=== PATIENT | female | born 1980 | race Caucasian/White ===

== ENCOUNTER 2017-02-20 07:13 | Emergency (ER) | payer BC, MEDICAID ==
[2017-02-20 07:32] VITALS: BP 122/79
--- NOTE | 2017-02-20 08:16 | UC ---
Skin Complaint HPI - HPI Summary HPI Summary: 36 y/o female presents to the urgent care c/o her c- section has small opening on one of the edges with some yellowish bloody discharge for the past 3 days. Pt reports she had her done on 01/18/2017 for her twin boys. Her scar was healing well, until she had been doing some heavy lifting and she noticed that one of the edges was getting infected. Pt couldn't get an appt to get and appt with her OBGYN Dr Tayo Toscano, just to make sure her is not opening. Pt denies pain, fever, abdominal pain, pelvic pain, SOB, chest pain , N/V/D. Her twin boys were premature since she developed pre-eclampsia. She is breast feeding. - History of Current Complaint Hx Obtained From: Patient Hx Last Menstrual Period: 08/16/15 ?: No Onset/Duration: Gradual Onset, Lasting Days - 3 days, Still Present Skin Exposure Onset/Duration: Days Ago Timing: Constant Onset Severity: Mild Current Severity: Mild Pain Intensity: 0 Pain Scale Used: 0-10 Numeric Location: Discrete - one of the edges of Character: Redness Aggravating Factor(s): Touch Alleviating Factor(s): Nothing Associated Signs & Symptoms: Positive: Rash. Negative: Nausea, Vomiting, Fever , Chills, Bruising, Tenderness Related History: Other: - <Marianne Pruett - Last Filed: 02/21/17 10:25> <Susan Benjamin - Last Filed: 02/23/17 20:26> - History of Current Complaint Chief Complaint: [facility] Time Seen by Provider: 02/20/17 07:22 Stated Complaint: SKIN COMPLAINT STOMACH - Allergy/Home Medications Allergies/Adverse Reactions: Allergies Allergy/AdvReac Type Severity Reaction Status Date / Time Ibuprofen Allergy Rash Verified 02/20/17 07:27 Penicillins Allergy Rash Verified 02/20/17 07:27 Home Medications: Home Medications Ascorbic Acid TAB* [Vitamin C TAB*] 500 mg PO DAILY 02/20/17 [History Confirmed 02/20/17] Vitamin TAB* 1 tab PO DAILY 02/20/17 [History Confirmed 02/20/17] Sertraline* [Zoloft*] 50 mg PO DAILY 02/20/17 [History Confirmed 02/20/17] Review of Systems Constitutional: Negative Skin: Other - with a minor infection Eyes: Negative ENT: Negative Respiratory: Negative Cardiovascular: Negative Gastrointestinal: Negative Genitourinary: Negative Motor: Negative Neurovascular: Negative Musculoskeletal: Negative Neurological: Negative Psychological: Negative Is Patient Immunocompromised?: No All Other Systems Reviewed And Are Negative: Yes <Marianne Pruett - Last Filed: 02/21/17 10:25> PMH/Surg Hx/FS Hx/Imm Hx Previously Healthy: Yes Other Cardiovascular History: Gestational HTN Psychological History: Anxiety - Surgical History Surgical History: Yes Surgery Procedure, Year, and Place: , 01/18/17, [place]; Tonsillectomy , ~1988 - Family History Family History: Hypothyrodism - Social History Occupation: Unemployed Lives: With Family Alcohol Use: None Substance Use Type: None Smoking Status (MU): Former Smoker When Did the Patient Quit Smoking/Using Tobacco: 2010 - Immunization History Most Recent Influenza Vaccination: 02/19/17 <Marianne Pruett - Last Filed: 02/21/17 10:25> Physical Exam Triage Information Reviewed: Yes Appearance: Well-Appearing, No Pain Distress, Well-Nourished Vital Signs: Initial Vital Signs Temp 99 F 02/20/17 07:25 Pulse 108 02/20/17 07:25 Resp 16 02/20/17 07:25 BP 122/79 02/20/17 07:25 Pulse Ox 99 02/20/17 07:25 Vital Signs Reviewed: Yes Eye Exam: Normal Eyes: Positive: Conjunctiva Clear - PERRLA, EOMI ENT Exam: Normal ENT: Positive: Normal ENT inspection, Hearing grossly normal, Pharynx normal, TMs normal Neck exam: Normal Neck: Positive: Supple, Nontender, No Lymphadenopathy Respiratory Exam: Normal Respiratory: Positive: Chest non-tender, Lungs clear, Normal breath sounds Cardiovascular Exam: Normal Cardiovascular: Positive: RRR, No Murmur, Pulses Normal, Brisk Capillary Refill Abdominal Exam: Normal Abdomen Description: Positive: Nontender, No Organomegaly, Soft. Negative: CVA Tenderness (R), CVA Tenderness (L) Bowel Sounds: Positive: Present Musculoskeletal Exam: Normal Musculoskeletal: Positive: Strength Intact, ROM Intact, No Edema Neurological Exam: Normal Psychological Exam: Normal Skin: Positive: Other - Suprapubic about 16cm in size healing well. The left corner with a discrete erythema and minimum yellowish discharge. non tender to palpation, no abcess or induration palpated. Yellowish discharged removed, no opening observed. <Marianne Pruett - Last Filed: 02/21/17 10:25> Vital Signs: Initial Vital Signs Temp 99 F 02/20/17 07:25 Pulse 108 02/20/17 07:25 Resp 16 02/20/17 07:25 BP 122/79 02/20/17 07:25 Pulse Ox 99 02/20/17 07:25 <Susan Benjamin - Last Filed: 02/23/17 20:26> Course/Dx - Course Course Of Treatment: 36 y/o female presents to the urgent care c/o her c- section has small opening on one of the edges with some yellowish bloody discharge for the past 3 days. Pt reports she had her done on 2016 for her twin boys. Her scar was healing well, until she had been doing some heavy lifting and she noticed that one of the edges was getting infected. Pt couldn't get an appt to get and appt with her OBGYN Dr Tayo Toscano, just to make sure her is not opening. Pt denies pain, fever, abdominal pain, pelvic pain, SOB, chest pain, N/V/D. Her twin boys were premature since she developed pre-eclampsia. She is breast feeding. Hx obtained. On Physical examination Left edge of the with discrete surgical site infection. Pt Rx Bacitracin topical and advised to keep wound clean and dry and apply topical ABX and covered with and sterile dressing.Advised heavy lifting and if fever, redness, pain and swelling develops toreturn to the urgent care or your OBGYN for further treatment. Pt understood and agreed with D/C instructions. - Differential Diagnoses - Skin Complaint Differential Diagnoses: Abscess, Allergic Reaction, Cellulitis, Contact Dermatitis, MRSA, Urticaria, Other - infected wound, - Diagnoses Provider Diagnoses: 1- scar superficial skin infection <Marianne Pruett - Last Filed: 02/21/17 10:25> Discharge <Marianne Pruett - Last Filed: 02/21/17 10:25> <Susan Benjamin - Last Filed: 02/23/17 20:26> - Discharge Plan Condition: Stable Disposition: HOME Prescriptions: Bacitracin OINTMENT* 1 applic TOPICAL TID #1 tube Patient Education Materials: Surgical Site Infections (ED) Referrals: Tayo Lopez MD [Primary Care Provider] - If Needed Additional Instructions: 1-Please apply topical antibiotic on affected area as directed. Kepp wound dry and clean 2- If fever, redness, pain and swelling develops please return to the urgent care or your OBGYN for further treatment. 3-Avoid heavy lifting Attestation Statement User Type: Provider - I was available for consult. This patient was seen by the FAVIOLA. The patient was not presented to, seen by, or examined by me. -Nelly <Susan Benjamin - Last Filed: 02/23/17 20:26>
== END 2017-02-20 08:30 | disposition home or self-care (01) ==
LOC: UCCORT 07:13
DX: O86.0 Infection of obstetric surgical wound (principal); O99.345 Other mental disorders complicating the puerperium; F41.9 Anxiety disorder, unspecified; Z88.6 Allergy status to analgesic agent; Z88.0 Allergy status to penicillin; Z87.891 Personal history of nicotine dependence
CPT/HCPCS: 99212; G0463

== ENCOUNTER 2017-02-25 07:04 | Emergency (ER) | payer BC, MEDICAID ==
[2017-02-25 07:12] VITALS: BP 122/74
--- NOTE | 2017-02-25 07:29 | UC ---
Breast Complaint - HPI Summary HPI Summary: right breast pain x 2 days + redness, swelling, tenderness been nursing to twins no fever, no chills - History of Current Complaint Hx Obtained From: Patient Breast Chief Complaint: Pain, Breast, Right, Inflammation Onset/Duration: Started Days Ago - 2, Still Present Timing: Constant Breast Pain Aggravating Factors: Breast Feeding, Palpation Breast Pain Alleviating Factors: Nothing Breast Associated Signs/Symptoms: Redness, Warmth - Allergy/Home Medications Allergies/Adverse Reactions: Allergies Allergy/AdvReac Type Severity Reaction Status Date / Time Ibuprofen Allergy Rash Verified 02/25/17 07:12 Penicillins Allergy Rash Verified 02/25/17 07:12 PMH/Surg Hx/FS Hx/Imm Hx Previously Healthy: Yes - Surgical History Surgical History: Yes Surgery Procedure, Year, and Place: , 01/18/17, [place]; Tonsillectomy , ~1988 - Family History Known Family History: Positive: Unknown Negative: Diabetes Family History: Hypothyrodism - Social History Alcohol Use: None Substance Use Type: None Smoking Status (MU): Former Smoker When Did the Patient Quit Smoking/Using Tobacco: 2010 - Immunization History Most Recent Influenza Vaccination: 02/19/17 Review of Systems Constitutional: Negative Skin: Negative Eyes: Negative ENT: Negative Respiratory: Negative Is Patient Immunocompromised?: No All Other Systems Reviewed And Are Negative: Yes Physical Exam Triage Information Reviewed: Yes Appearance: Well-Appearing, No Pain Distress, Well-Nourished Vital Signs: Initial Vital Signs Temp 98.7 F 02/25/17 07:06 Pulse 102 02/25/17 07:06 Resp 16 02/25/17 07:06 BP 122/74 02/25/17 07:06 Pulse Ox 99 02/25/17 07:06 Vital Signs Reviewed: Yes Eyes: Positive: Conjunctiva Clear ENT: Positive: Normal ENT inspection, Hearing grossly normal, Pharynx normal Neck: Positive: Supple, Nontender, No Lymphadenopathy Respiratory: Positive: Chest non-tender, Lungs clear, Normal breath sounds Cardiovascular: Positive: Tachycardia Abdominal Exam: Normal Abdomen Description: Positive: Soft Skin Exam: Other - right breast: + swelling, tender, mild erythema, warm to touch Breast Pain Course/Dx - Diagnoses Provider Diagnoses: Mastitis Discharge - Discharge Plan Condition: Stable Disposition: HOME Prescriptions: DOXYcycline CAP(*) [DOXYcycline 100MG CAP(*)] 100 mg PO BID #20 cap Patient Education Materials: Mastitis (ED) Referrals: Tayo Lopez MD [Primary Care Provider] - 5 Days
== END 2017-02-25 07:30 | disposition home or self-care (01) ==
LOC: UCCORT 07:04
DX: N61.0 Mastitis without abscess (principal); Z88.6 Allergy status to analgesic agent; Z88.0 Allergy status to penicillin; Z87.891 Personal history of nicotine dependence
CPT/HCPCS: 99212; G0463

== ENCOUNTER 2017-04-09 21:24 | Emergency (ER) | payer BC, MEDICAID ==
[2017-04-09 21:44] VITALS: BP 106/67
[2017-04-09] MEDS ORDERED: Cephalexin CAP* 500 MG PO ONE (22:05)
--- NOTE | 2017-04-09 22:11 | UC ---
Breast Complaint - HPI Summary HPI Summary: C/O recurrent mastitis right breast. - History of Current Complaint Hx Obtained From: Patient Breast Chief Complaint: Pain, Right, Inflammation Onset/Duration: Started Days Ago - 3, Worse Since - onset Timing: Constant Breast Pain Aggravating Factors: Breast Feeding Breast Pain Alleviating Factors: Nothing Breast Associated Signs/Symptoms: Redness, Warmth Breast Related History: Similar Diagnosis as: - mastitis - Allergy/Home Medications Allergies/Adverse Reactions: Allergies Allergy/AdvReac Type Severity Reaction Status Date / Time Ibuprofen Allergy Rash Verified 04/09/17 21:38 Penicillins Allergy Rash Verified 04/09/17 21:38 PMH/Surg Hx/FS Hx/Imm Hx Previously Healthy: Yes - Surgical History Surgical History: Yes Surgery Procedure, Year, and Place: , 01/18/17, [place]; Tonsillectomy , ~1988 - Family History Known Family History: Negative: Cardiac Disease, Hypertension, Diabetes Family History: Hypothyrodism - Social History Occupation: Employed Full-time Lives: With Family Alcohol Use: None Substance Use Type: None Smoking Status (MU): Former Smoker When Did the Patient Quit Smoking/Using Tobacco: 2010 - Immunization History Most Recent Influenza Vaccination: 02/19/17 Review of Systems Skin: Other - Redness medial right breast Is Patient Immunocompromised?: No All Other Systems Reviewed And Are Negative: Yes Physical Exam Triage Information Reviewed: Yes Appearance: Well-Appearing, No Pain Distress, Well-Nourished Vital Signs: Initial Vital Signs Temp 97.5 F 04/09/17 21:39 Pulse 87 04/09/17 21:39 Resp 16 04/09/17 21:39 BP 106/67 04/09/17 21:39 Pulse Ox 100 04/09/17 21:39 Vital Signs Reviewed: Yes Eyes: Positive: Conjunctiva Clear Neck exam: Normal Respiratory Exam: Normal Cardiovascular Exam: Normal Musculoskeletal Exam: Normal Neurological Exam: Normal Psychological Exam: Normal Skin: Positive: Other - Erythema with warmth tenderness and swelling right medial breast. Breast Pain Course/Dx - Differential Diagnoses Differential Diagnosis/HQI/PQRI: Breast Abscess, Fibrocystic Breast Disease, Mastitis - Diagnoses Provider Diagnoses: Mastitis Is Visit Related: No Discharge - Discharge Plan Condition: Stable Disposition: HOME Prescriptions: Cephalexin CAP* [Keflex 500 CAP*] 500 mg PO QID #40 cap Patient Education Materials: Mastitis (ED), Cephalexin (By mouth) Referrals: Tayo Lopez MD [Primary Care Provider] -
== END 2017-04-09 22:17 | disposition home or self-care (01) ==
LOC: UCCORT 21:24
DX: N61.0 Mastitis without abscess (principal); Z88.6 Allergy status to analgesic agent; Z88.0 Allergy status to penicillin; Z87.891 Personal history of nicotine dependence
CPT/HCPCS: 99212; A9270-GY; G0463

== ENCOUNTER 2017-11-29 18:02 | Emergency (ER) | payer BC, MEDICAID ==
[2017-11-29 18:29] VITALS: BP 119/80
--- NOTE | 2017-11-29 18:38 | UC ---
Throat Pain/Nasal Jeanmarie HPI - HPI Summary HPI Summary: Sore throat for 2 days took 1 keflex yesterday and 1 the day before---has had fevers---her 10 mth old twins have strep throat - History of Current Complaint Chief Complaint: UCRespiratory Stated Complaint: ST Time Seen by Provider: 11/29/17 18:17 Hx Obtained From: Patient Hx Last Menstrual Period: 11/22/17 ?: No Onset/Duration: Gradual Onset, Lasting Days - 2, Still Present Severity: Moderate Pain Intensity: 7 Pain Scale Used: 0-10 Numeric Cough: None Associated Signs & Symptoms: Positive: Negative - Allergies/Home Medications Allergies/Adverse Reactions: Allergies Allergy/AdvReac Type Severity Reaction Status Date / Time ibuprofen Allergy Unknown Rash Verified 11/29/17 18:20 Penicillins Allergy Unknown Rash Verified 11/29/17 18:20 Home Medications: Home Medications Acetaminophen [Pain Relief] 1,000 mg PO PRN 11/29/17 [History] PMH/Surg Hx/FS Hx/Imm Hx Previously Healthy: Yes Psychological History: Depression - Surgical History Surgical History: Yes Surgery Procedure, Year, and Place: , 01/18/17, [place]; Tonsillectomy , ~1988 - Family History Known Family History: Positive: None Negative: Cardiac Disease, Hypertension, Diabetes Family History: Hypothyrodism - Social History Occupation: Employed Full-time Lives: With Family Alcohol Use: None Substance Use Type: None Smoking Status (MU): Former Smoker When Did the Patient Quit Smoking/Using Tobacco: 2010 - Immunization History Most Recent Influenza Vaccination: 02/19/17 Review of Systems Constitutional: Fever Skin: Negative Eyes: Negative ENT: Sore Throat Respiratory: Negative Cardiovascular: Negative Gastrointestinal: Negative Genitourinary: Negative Motor: Negative Neurovascular: Negative Musculoskeletal: Negative Neurological: Negative Psychological: Negative Is Patient Immunocompromised?: No All Other Systems Reviewed And Are Negative: Yes Physical Exam Triage Information Reviewed: Yes Appearance: Well-Nourished, Ill-Appearing - mild, Pain Distress - mild Vital Signs: Initial Vital Signs Temp 99.2 F 11/29/17 18:20 Pulse 106 11/29/17 18:20 Resp 18 11/29/17 18:20 BP 119/80 11/29/17 18:20 Pulse Ox 100 11/29/17 18:20 Vital Signs Reviewed: Yes Eye Exam: Normal Eyes: Positive: Conjunctiva Clear ENT Exam: Normal ENT: Positive: Normal ENT inspection, Hearing grossly normal, Pharyngeal erythema, TMs normal, Uvula midline. Negative: Nasal congestion, Tonsillar swelling, Tonsillar exudate, Trismus, Muffled voice, Hoarse voice, Dental tenderness, Sinus tenderness Dental Exam: Normal Neck exam: Normal Neck: Positive: Supple, Nontender, No Lymphadenopathy Respiratory Exam: Normal Respiratory: Positive: Chest non-tender, Lungs clear, Normal breath sounds, No respiratory distress, No accessory muscle use Cardiovascular Exam: Normal Cardiovascular: Positive: RRR, No Murmur, Pulses Normal, Brisk Capillary Refill Musculoskeletal Exam: Normal Musculoskeletal: Positive: Strength Intact, ROM Intact, No Edema Neurological Exam: Normal Neurological: Positive: Alert, Muscle Tone Normal Psychological Exam: Normal Skin Exam: Normal Diagnostics - Laboratory Diagnostic Studies Completed/Ordered: RST (-) Throat Pain/Nasal Course/Dx - Course Assessment/Plan: keflex, tylenol, ibuprofen increase fluids follow with pcp prn - Differential Dx/Diagnosis Provider Diagnoses: pharyngitis Discharge - Sign-Out/Discharge Documenting (check all that apply): Discharge/Admit/Transfer - Discharge Plan Condition: Stable Disposition: HOME Prescriptions: Cephalexin CAP* [Keflex CAP*] 500 mg PO BID #19 cap Fluconazole 150 MG (NF) [Diflucan 150 mg (NF)] 150 mg PO ONCE #1 tab Patient Education Materials: Strep Throat (ED) Referrals: Tayo Lopez MD [Primary Care Provider] - If Needed - Billing Disposition and Condition Condition: STABLE Disposition: Home
[2017-11-29] MEDS ORDERED: Cephalexin CAP* 500 MG PO ONE (18:43)
== END 2017-11-29 18:52 | disposition home or self-care (01) ==
LOC: UCCORT 18:02
DX: J02.9 Acute pharyngitis, unspecified (principal); Z20.89 Contact with and (suspected) exposure to other communicable diseases; Z88.6 Allergy status to analgesic agent; Z88.0 Allergy status to penicillin; Z87.891 Personal history of nicotine dependence
CPT/HCPCS: 87651; 99212; A9270-GY; G0463

== ENCOUNTER 2018-11-30 21:33 | Emergency (ER) | payer BC ==
[2018-11-30 21:46] VITALS: BP 123/76
[2018-11-30] MEDS ORDERED: DOXYcycline CAP(*) 100 MG PO ONE (21:53)
--- NOTE | 2018-11-30 21:55 | UC ---
Throat Pain/Nasal Jeanmarie HPI - HPI Summary HPI Summary: 38-year-old woman comes in with a chief complaint of sinusitis symptoms for 2 weeks. She's been having rhinorrhea. Rhinorrhea sternum yellow. She's having frontal and maxillary sinus pressure. No recent fevers. She has had a sore throat. No cough or chest congestion. She did try [id number] medications was helped some but then the symptoms have worsened over time. - History of Current Complaint Chief Complaint: UCRespiratory Stated Complaint: SINUSES Time Seen by Provider: 11/30/18 21:36 Hx Last Menstrual Period: 11/05/18 Pain Intensity: 8 - Allergies/Home Medications Allergies/Adverse Reactions: Allergies Allergy/AdvReac Type Severity Reaction Status Date / Time ibuprofen Allergy Unknown Rash Verified 11/30/18 21:44 Penicillins Allergy Unknown Rash Verified 11/30/18 21:44 PMH/Surg Hx/FS Hx/Imm Hx Previously Healthy: Yes - Surgical History Surgical History: Yes Surgery Procedure, Year, and Place: , 01/18/17, [place]; Tonsillectomy , ~1988 - Family History Known Family History: Positive: None Negative: Cardiac Disease, Hypertension, Diabetes Family History: Hypothyrodism - Social History Alcohol Use: None Substance Use Type: None Smoking Status (MU): Former Smoker When Did the Patient Quit Smoking/Using Tobacco: 2010 - Immunization History Most Recent Influenza Vaccination: 02/19/17 Review of Systems All Other Systems Reviewed And Are Negative: Yes Constitutional: Positive: Negative Skin: Positive: Negative Eyes: Positive: Negative ENT: Positive: Sore Throat, Nasal Discharge, Sinus Congestion, Sinus Pain/ Tenderness Respiratory: Positive: Negative Cardiovascular: Positive: Negative Gastrointestinal: Positive: Negative Motor: Positive: Negative Neurovascular: Positive: Negative Musculoskeletal: Positive: Negative Neurological: Positive: Negative Psychological: Positive: Negative Is Patient Immunocompromised?: No Physical Exam Triage Information Reviewed: Yes Appearance: No Pain Distress, Well-Nourished, Ill-Appearing - mild Vital Signs: Initial Vital Signs Temp 97.7 F 11/30/18 21:45 Pulse 90 11/30/18 21:45 Resp 16 11/30/18 21:45 BP 123/76 11/30/18 21:45 Pulse Ox 100 11/30/18 21:45 Vital Signs Reviewed: Yes Eye Exam: Normal Eyes: Positive: Conjunctiva Clear ENT: Positive: Pharyngeal erythema, Nasal congestion, Nasal drainage, TMs normal Neck: Positive: Supple Respiratory: Positive: Lungs clear, Normal breath sounds, No respiratory distress Cardiovascular: Positive: RRR Musculoskeletal Exam: Normal Musculoskeletal: Positive: Strength Intact, ROM Intact Neurological Exam: Normal Neurological: Positive: Alert, Muscle Tone Normal Psychological Exam: Normal Psychological: Positive: Age Appropriate Behavior Skin Exam: Normal Throat Pain/Nasal Course/Dx - Differential Dx/Diagnosis Provider Diagnosis: Sinusitis Discharge - Sign-Out/Discharge Documenting (check all that apply): Patient Departure All imaging exams completed and their final reports reviewed: No Studies - Discharge Plan Condition: Stable Disposition: HOME Prescriptions: DOXYcycline CAP(*) [DOXYcycline 100MG CAP(*)] 100 mg PO BID #18 cap Fluconazole 150 MG TAB* [Diflucan 150 MG TAB*] 150 mg PO ONCE #2 tablet Fluticasone NASAL SPRAY 50MCG* [Flonase NASAL SPRAY 50MCG*] 2 spray BOTH NARES DAILY #1 btl Patient Education Materials: Sinusitis (ED) Referrals: Tayo Lopez MD [Primary Care Provider] - Additional Instructions: FOLLOW UP WITH YOUR DOCTOR IF NOT COMPLETELY IMPROVED. GET REEVALUATED SOONER IF WORSE OR ANY QUESTIONS OR CONCERNS. - Billing Disposition and Condition Condition: STABLE Disposition: Home
== END 2018-11-30 21:59 | disposition home or self-care (01) ==
LOC: UCCORT 21:33
DX: J32.9 Chronic sinusitis, unspecified (principal); Z87.891 Personal history of nicotine dependence
CPT/HCPCS: 99212; A9270-GY; G0463